=== PATIENT | male | born 1960 | race Hispanic/Latino ===

== ENCOUNTER → 2017-08-03 | Outpatient (CLI) | payer MEDICARE ==
[~2017-08-03] MED LIST: IOPAMIDOL 370 MG/ML 200 ML INFUS..BTL INJ ONE; SODIUM CHLORIDE 0.9% 250ML 250 ML ONE; SODIUM CHLORIDE 0.9% 50ML 50 ML ONE
[2017-08-03 14:35] LABS: BLOOD UREA NITROGEN 13 mg/dL (7-26); BUN/CREATININE RATIO 16 (6-25); EST GLOMERULAR FILTRATION RATE > 60 ML/MIN (60-)
--- NOTE | 2017-08-03 16:29 | Diagnostic Imaging Report ---
PROCEDURE: CT ABDOMEN \T\ PELVIS W/WO CONTRAST TECHNIQUE: The abdomen and pelvis were scanned utilizing a multidetector helical scanner from the diaphragm to the lesser trochanter before and after the IV administration of 150 cc of Isovue 370 and the oral administration of water. Coronal and sagittal multiplanar reformations were obtained. CT urogram protocol was performed using split bolus technique. COMPARISON: None. INDICATIONS: GROSS HEMATURIA FINDINGS: LOWER THORAX: 9 mm nodular opacity in the left lung base (series 3 cup and 49) has a linear configuration, suggestive of scar. Mild cardiomegaly. HEPATOBILIARY: No focal hepatic lesions. No biliary ductal dilatation. There has been a cholecystectomy. SPLEEN: No splenomegaly. PANCREAS: No focal masses or ductal dilatation. ADRENALS: No right adrenal nodules. Fat-containing left adrenal nodule (series 6, image 60) consistent with a benign myelolipoma KIDNEYS/URETERS: There are at least 3 nonobstructing stones in the midpole and inferior pole of the right kidney, measuring up to 1.0 cm. No left renal stones. No ureteral stones on either side. A 1.5 cm cyst in the upper pole of the left kidney (series 6, image 74) contains a thin internal septation. Other very small hypodensities in both kidneys are too small to characterize, but likely represent cysts. Opacified portions of the collecting systems and ureters are normal without suspicious filling defects. There is nonopacification of the right mid ureter and left distal ureter, likely due to peristalsis. PELVIC ORGANS/BLADDER: Mild circumferential wall thickening of the bladder may be due to underdistention. The prostate gland measures 3.7 x 5.4 x 4.0 cm (41.85 mL). PERITONEUM / RETROPERITONEUM: No free air or fluid. LYMPH NODES: No lymphadenopathy. VESSELS: Mild atherosclerotic calcification of the aorta and its branches. GI TRACT: No distention or wall thickening. Postsurgical changes of gastric bypass BONES AND SOFT TISSUES: Multilevel spondylosis of the thoracic and lumbar spine. Grade 1 anterolisthesis of L4. IMPRESSION: Nonobstructing stones in the right kidney measure up to 1 cm. No left renal stones. No ureteral stones. Mildly complex cyst in the upper pole of the left kidney. Recommend followup renal ultrasound in 6 months to ensure stability. No suspicious filling defects in the collecting systems or ureters. Borderline enlargement of the prostate. 9 mm nodular opacity in the left lung base has the appearance of a scar. Consider low dose chest CT in 6 months to ensure stability. Dictated by: Jeff Norman M.D. on 08/03/2017 at 16:32 Electronically approved by: Jeff Norman M.D. on 08/03/2017 at 16:32
== END ==
LOC: CT 13:00
PROVIDERS: ATTEND Urology
DX: R31.9 Hematuria, unspecified (principal)
CPT/HCPCS: 36415; 74178; 82565; 84520; J7050; Q9967